=== PATIENT | female | born 1930 | race Caucasian/White ===

== ENCOUNTER 2018-04-19 09:30 | Emergency (ER) | payer MEDICARE, OTHER ==
[~2018-04-19] VITALS: Ht 137.2 cm; Wt 72.7 kg
[2018-04-19] MEDS ORDERED: DILT30TA PO (09:39)
[2018-04-19] MEDS ORDERED: IRBE75TA5 PO (09:39)
[2018-04-19 09:55] LABS: BASO % 0.4 % (0.0-1.0); EOS % 0.4 % (0.0-3.0); HEMATOCRIT 43.3 % (36.0-47.0); HEMOGLOBIN 14.4 g/dl (12.0-15.5); LYMPH # 1.3 10^3/uL (1.5-4.5); MEAN CORPUSCULAR HEMOGLOBIN 28.9 pg (27.0-33.0); MEAN CORPUSCULAR HGB CONC 33.3 g/dl (32.0-36.5); MEAN CORPUSCULAR VOLUME 86.9 fl (80.0-96.0); MONO # 0.6 10^3/uL (0.0-0.8); MONO % 12.5 % (0.0-5.0); NEUTROPHILS # 2.8 10^3/uL (1.8-7.7); NEUTROPHILS % 58.5 % (36.0-66.0); PLATELET COUNT, AUTOMATED 244 10^3/uL (150-450); RED BLOOD COUNT 4.98 10^6/uL (4.00-5.40); WHITE BLOOD COUNT 4.7 10^3/uL (4.0-10.0)
[2018-04-19] MEDS ORDERED: NS 1,000 ML IV ONE ×2 (10:00→12:00)
[2018-04-19] MEDS ORDERED: ONDANSETRON 4MG/2ML VIAL (J2405) IV ONE (10:00)
[2018-04-19 10:30] LABS: BLOOD UREA NITROGEN 26 MG/DL (7-18); CALCIUM LEVEL 8.9 MG/DL (8.8-10.2); CARBON DIOXIDE LEVEL 22 MEQ/L (21-32); CHLORIDE LEVEL 104 MEQ/L (98-107); CREATININE FOR GFR 0.75 MG/DL (0.55-1.30); GLOMERULAR FILTRATION RATE > 60.0 (>32); GLUCOSE, FASTING 93 MG/DL (70-100); POTASSIUM SERUM 3.4 MEQ/L (3.5-5.1); SODIUM LEVEL 137 MEQ/L (136-145)
[2018-04-19 13:39] VITALS: BP 168/75
[2018-04-19] MEDS ORDERED: POTASSIUM CHLORIDE 10 MEQ SR TABLET PO ONE (14:30)
[2018-04-19] MEDS ORDERED: LOMO2.5T PO (14:34)
[2018-04-19] MEDS ORDERED: ONDA4TAB6 PO (14:34)
== END 2018-04-19 14:44 | disposition home or self-care (01) ==
LOC: M ED 09:30 → EDBD 09:30 → M ED 14:44
DX: A08.0 Rotaviral enteritis (principal); E86.0 Dehydration; I10 Essential (primary) hypertension; I47.9 Paroxysmal tachycardia, unspecified

== ENCOUNTER → 2019-02-10 | Outpatient (CLI) | payer MEDICARE ==
[~2019-02-10] MED LIST: DILT30TA PO; IRBE75TA5 PO; LOMO2.5T PO; ONDA4TAB6 PO
== END ==
LOC: M SMT 14:25
PROVIDERS: ATTEND Internal Medicine Cardiovascular Disease
DX: R07.9 Chest pain, unspecified (principal)

== ENCOUNTER → 2019-11-09 | Outpatient (REF) | payer MEDICARE ==
[~2019-11-09] MED LIST changes: +IRBE75TA4 PO; -IRBE75TA5 PO
== END ==
LOC: M LAB REF 16:16
PROVIDERS: ATTEND Dermatology
DX: C44.319 Basal cell carcinoma of skin of other parts of face (principal)
CPT/HCPCS: 11102; 88305; G0463

== ENCOUNTER → 2019-12-16 | Outpatient (REF) | payer MEDICARE | LOC: M LAB REF 14:51 | PROVIDERS: ATTEND Dermatology | DX: C44.310 Basal cell carcinoma of skin of unspecified parts of face (principal) ==

== ENCOUNTER 2021-07-08 09:13 | Inpatient (IN) | payer MEDICARE ==
[~2021-07-08] VITALS: Ht 144.8 cm; Wt 73.6 kg
[2021-07-08] MEDS ORDERED: ONDANSETRON 4MG/2ML VIAL IV ONE (10:00)
[2021-07-08 10:47] LABS: BASO # 0.1 10^3/uL (0.0-0.2); BASO % 0.4 % (0.0-1.0); EOS # 0.1 10^3/uL (0.0-0.5); EOS % 0.5 % (0.0-3.0); HEMATOCRIT 40.2 % (36.0-47.0); HEMOGLOBIN 13.1 g/dl (12.0-15.5); LYMPH # 2.3 10^3/uL (1.5-5.0); LYMPH % 19.9 % (24.0-44.0); MEAN CORPUSCULAR HEMOGLOBIN 29.6 pg (27.0-33.0); MEAN CORPUSCULAR HGB CONC 32.6 g/dl (32.0-36.5); MONO # 0.7 10^3/uL (0.0-0.8); MONO % 5.7 % (2.0-8.0); NEUTROPHILS # 8.2 10^3/uL (1.5-8.5); NEUTROPHILS % 72.8 % (36.0-66.0); PLATELET COUNT, AUTOMATED 286 10^3/uL (150-450); RED BLOOD COUNT 4.42 10^6/uL (4.00-5.40); WHITE BLOOD COUNT 11.3 10^3/uL (4.0-10.0)
[2021-07-08 11:13] LABS: CK-MB VALUE MASS 1.1 NG/ML (<3.6); MB/CK RELATIVE INDEX 1.9 (< OR =4)
[2021-07-08 11:50] LABS: BLOOD UREA NITROGEN 21 MG/DL (7-18); CALCIUM LEVEL 9.2 MG/DL (8.8-10.2); CARBON DIOXIDE LEVEL 28 MEQ/L (21-32); CHLORIDE LEVEL 105 MEQ/L (98-107); CREATININE FOR GFR 0.74 MG/DL (0.55-1.30); GLOMERULAR FILTRATION RATE > 60.0 (>32); GLUCOSE, FASTING 98 MG/DL (70-100); POTASSIUM SERUM 4.2 MEQ/L (3.5-5.1); SODIUM LEVEL 139 MEQ/L (136-145)
[2021-07-08] MEDS ORDERED: DILT1TAB12 PO (12:39)
[2021-07-08] MEDS ORDERED: IRBE300T12 PO (12:39)
[2021-07-08] MEDS ORDERED: HOME MED LIST COMPLETE! XX SCH (12:55)
[2021-07-08 13:10] LABS: RSV AMPLIFICATION NEGATIVE (NEGATIVE)
[2021-07-08] MEDS ORDERED: ACETAMINOPHEN TAB 650MG DOSE (2X325MG) PO PRN (14:05)
[2021-07-08] MEDS: IRBESARTAN 150MG TAB PO SCH (14:55)
[2021-07-08 16:50] VITALS: BP 152/79
[2021-07-08 21:18] VITALS: BP_SYST 103; BP_SYST 121; BP_SYST 126; BP_DIAS 68; BP_DIAS 71; BP_DIAS 75
[2021-07-08 21:19] VITALS: BP 126/71
[2021-07-08] MEDS: RAMELTEON 8 MG TAB (ROZEREM) PO PRN (22:53)
[2021-07-09 01:40] VITALS: BP_SYST 110; BP_SYST 86; BP_DIAS 55; BP_DIAS 61; BP_DIAS 62
[2021-07-09 05:00] LABS: BASO # 0.1 10^3/uL (0.0-0.2); BASO % 0.7 % (0.0-1.0); EOS # 0.1 10^3/uL (0.0-0.5); EOS % 1.3 % (0.0-3.0); LYMPH # 1.4 10^3/uL (1.5-5.0); LYMPH % 18.1 % (24.0-44.0); MEAN CORPUSCULAR HEMOGLOBIN 30.2 pg (27.0-33.0); MEAN CORPUSCULAR HGB CONC 33.3 g/dl (32.0-36.5); MEAN CORPUSCULAR VOLUME 90.7 fl (80.0-96.0); MONO # 0.5 10^3/uL (0.0-0.8); MONO % 6.6 % (2.0-8.0); NEUTROPHILS # 5.5 10^3/uL (1.5-8.5); PLATELET COUNT, AUTOMATED 249 10^3/uL (150-450); RED BLOOD COUNT 3.97 10^6/uL (4.00-5.40); WHITE BLOOD COUNT 7.5 10^3/uL (4.0-10.0)
[2021-07-09 05:21] LABS: BLOOD UREA NITROGEN 21 MG/DL (7-18); CALCIUM LEVEL 8.8 MG/DL (8.8-10.2); CARBON DIOXIDE LEVEL 27 MEQ/L (21-32); CHLORIDE LEVEL 108 MEQ/L (98-107); CREATININE FOR GFR 0.65 MG/DL (0.55-1.30); GLOMERULAR FILTRATION RATE > 60.0 (>32); GLUCOSE, FASTING 105 MG/DL (70-100); POTASSIUM SERUM 4.3 MEQ/L (3.5-5.1); SODIUM LEVEL 140 MEQ/L (136-145)
[2021-07-09 05:45] VITALS: BP_SYST 105; BP_SYST 107; BP_SYST 109; BP_DIAS 58; BP_DIAS 59; BP_DIAS 62
[2021-07-09] MEDS: IRBESARTAN 150MG TAB PO SCH (09:00)
[2021-07-09] MEDS ORDERED: FLUBLOK(EGG FREE)(QUAD)INFLUENZA VACC 0.5ML SYRINGE 18YRS & OLDER IM ONE (09:00)
[2021-07-09 09:40] VITALS: BP_SYST 108; BP_SYST 112; BP_SYST 113; BP_DIAS 58; BP_DIAS 60; BP_DIAS 63
[2021-07-09 11:30] VITALS: BP 128/73
[2021-07-09] MEDS ORDERED: ONDANSETRON 4MG/2ML VIAL IV ONE (12:15)
[2021-07-09 14:00] VITALS: BP 118/74
[2021-07-09 19:06] VITALS: BP 130/70
[2021-07-10] MEDS: ONDANSETRON 4MG/2ML VIAL IV PRN ×2 (03:21→09:21)
[2021-07-10 05:40] VITALS: BP 156/70
[2021-07-10 06:14] LABS: BASO % 0.5 % (0.0-1.0); EOS # 0.1 10^3/uL (0.0-0.5); EOS % 1.1 % (0.0-3.0); HEMATOCRIT 36.4 % (36.0-47.0); LYMPH # 1.4 10^3/uL (1.5-5.0); LYMPH % 18.2 % (24.0-44.0); MEAN CORPUSCULAR HEMOGLOBIN 29.5 pg (27.0-33.0); MEAN CORPUSCULAR VOLUME 89.4 fl (80.0-96.0); MONO # 0.6 10^3/uL (0.0-0.8); MONO % 7.5 % (2.0-8.0); NEUTROPHILS # 5.7 10^3/uL (1.5-8.5); NEUTROPHILS % 72.3 % (36.0-66.0); PLATELET COUNT, AUTOMATED 246 10^3/uL (150-450); RED BLOOD COUNT 4.07 10^6/uL (4.00-5.40); WHITE BLOOD COUNT 7.9 10^3/uL (4.0-10.0)
[2021-07-10 06:35] LABS: BLOOD UREA NITROGEN 28 MG/DL (7-18); CALCIUM LEVEL 8.9 MG/DL (8.8-10.2); CARBON DIOXIDE LEVEL 28 MEQ/L (21-32); CHLORIDE LEVEL 107 MEQ/L (98-107); CREATININE FOR GFR 0.67 MG/DL (0.55-1.30); GLOMERULAR FILTRATION RATE > 60.0 (>32); GLUCOSE, FASTING 104 MG/DL (70-100); POTASSIUM SERUM 3.8 MEQ/L (3.5-5.1); SODIUM LEVEL 138 MEQ/L (136-145)
[2021-07-10] MEDS: IRBESARTAN 150MG TAB PO SCH (09:21)
[2021-07-10] MEDS: MECLIZINE 25 MG TABLET PO SCH ×4 (09:45→19:42)
[2021-07-10] MEDS ORDERED: ALPRAZolam 0.25 MG TAB PO PRN (10:00)
[2021-07-10 14:00] VITALS: BP 102/50
[2021-07-10 19:50] VITALS: BP 117/58
[2021-07-11 06:00] VITALS: BP 124/61
[2021-07-11 07:00] LABS: BASO % 0.6 % (0.0-1.0); EOS # 0.3 10^3/uL (0.0-0.5); EOS % 3.7 % (0.0-3.0); HEMATOCRIT 35.6 % (36.0-47.0); HEMOGLOBIN 11.7 g/dl (12.0-15.5); LYMPH # 2.8 10^3/uL (1.5-5.0); LYMPH % 39.8 % (24.0-44.0); MEAN CORPUSCULAR HEMOGLOBIN 29.6 pg (27.0-33.0); MEAN CORPUSCULAR HGB CONC 32.9 g/dl (32.0-36.5); MEAN CORPUSCULAR VOLUME 90.1 fl (80.0-96.0); MONO # 0.6 10^3/uL (0.0-0.8); MONO % 8.6 % (2.0-8.0); NEUTROPHILS # 3.3 10^3/uL (1.5-8.5); NEUTROPHILS % 46.9 % (36.0-66.0); PLATELET COUNT, AUTOMATED 238 10^3/uL (150-450); RED BLOOD COUNT 3.95 10^6/uL (4.00-5.40)
[2021-07-11 07:02] LABS: BLOOD UREA NITROGEN 26 MG/DL (7-18); CALCIUM LEVEL 8.8 MG/DL (8.8-10.2); CARBON DIOXIDE LEVEL 31 MEQ/L (21-32); CHLORIDE LEVEL 109 MEQ/L (98-107); CREATININE FOR GFR 0.85 MG/DL (0.55-1.30); GLOMERULAR FILTRATION RATE > 60.0 (>32); GLUCOSE, FASTING 82 MG/DL (70-100); POTASSIUM SERUM 4.5 MEQ/L (3.5-5.1); SODIUM LEVEL 141 MEQ/L (136-145)
[2021-07-11] MEDS: MECLIZINE 25 MG TABLET PO SCH ×4 (07:43→20:26)
[2021-07-11] MEDS: IRBESARTAN 150MG TAB PO SCH (09:00)
[2021-07-11 14:00] VITALS: BP 134/67
[2021-07-11 18:00] VITALS: BP 116/74
[2021-07-11] MEDS: RAMELTEON 8 MG TAB (ROZEREM) PO PRN (20:26)
[2021-07-12 06:00] VITALS: BP 114/68
[2021-07-12 06:46] LABS: BASO % 0.5 % (0.0-1.0); EOS # 0.2 10^3/uL (0.0-0.5); EOS % 3.1 % (0.0-3.0); HEMATOCRIT 37.1 % (36.0-47.0); HEMOGLOBIN 11.9 g/dl (12.0-15.5); LYMPH # 2.4 10^3/uL (1.5-5.0); LYMPH % 31.9 % (24.0-44.0); MEAN CORPUSCULAR HEMOGLOBIN 29.5 pg (27.0-33.0); MEAN CORPUSCULAR HGB CONC 32.1 g/dl (32.0-36.5); MEAN CORPUSCULAR VOLUME 92.1 fl (80.0-96.0); MONO # 0.7 10^3/uL (0.0-0.8); MONO % 9.3 % (2.0-8.0); NEUTROPHILS # 4.1 10^3/uL (1.5-8.5); NEUTROPHILS % 54.8 % (36.0-66.0); PLATELET COUNT, AUTOMATED 235 10^3/uL (150-450); RED BLOOD COUNT 4.03 10^6/uL (4.00-5.40); WHITE BLOOD COUNT 7.5 10^3/uL (4.0-10.0)
[2021-07-12 07:11] LABS: BLOOD UREA NITROGEN 31 MG/DL (7-18); CALCIUM LEVEL 8.6 MG/DL (8.8-10.2); CARBON DIOXIDE LEVEL 30 MEQ/L (21-32); CHLORIDE LEVEL 110 MEQ/L (98-107); CREATININE FOR GFR 0.77 MG/DL (0.55-1.30); GLOMERULAR FILTRATION RATE > 60.0 (>32); GLUCOSE, FASTING 87 MG/DL (70-100); POTASSIUM SERUM 3.8 MEQ/L (3.5-5.1); SODIUM LEVEL 142 MEQ/L (136-145)
[2021-07-12] MEDS ORDERED: MECL-86 PO ×2 (07:59→08:19)
[2021-07-12 08:53] VITALS: BP 114/68
[2021-07-12] MEDS: IRBESARTAN 150MG TAB PO SCH (08:53)
[2021-07-12] MEDS: MECLIZINE 25 MG TABLET PO SCH (08:57)
== END 2021-07-12 11:06 | disposition home health service (06) | DRG 103 ==
LOC: M ED 09:13 → EDBD 09:13 → M ED INP 13:41 → ENRESERV 14:35 → M MSPAV 16:46
PROVIDERS: ADMIT General Practice; ATTEND Internal Medicine
DX: F07.81 Postconcussional syndrome (principal); I47.1 Supraventricular tachycardia; I10 Essential (primary) hypertension; F41.9 Anxiety disorder, unspecified; W18.09XA Striking against other object with subsequent fall, initial encounter; Y92.009 Unspecified place in unspecified non-institutional (private) residence as the place of occurrence of the external cause; R29.6 Repeated falls; Z85.828 Personal history of other malignant neoplasm of skin; S00.93XA Contusion of unspecified part of head, initial encounter; S80.11XA Contusion of right lower leg, initial encounter

== ENCOUNTER 2022-03-14 20:02 | Observation (INO) | payer MEDICARE ==
[~2022-03-14] VITALS: Ht 144.8 cm; Wt 68.2 kg
[~2022-03-14 20:02] MED LIST changes: +DILT1TAB12 PO; +IRBE300T12 PO; +MECL-86 PO
[2022-03-14] MEDS ORDERED: ONDANSETRON 4MG 2ML VIAL IV ONE (22:00)
[2022-03-14] MEDS: MORPHINE 2 MG/ML 1ML VIAL IV PRN (22:31)
[2022-03-14 22:44] LABS: BASO % 0.3 % (0.0-1.0); EOS % 0.1 % (0.0-3.0); HEMATOCRIT 41.3 % (36.0-47.0); HEMOGLOBIN 13.3 g/dl (12.0-15.5); LYMPH # 1.7 10^3/uL (1.5-5.0); LYMPH % 14.3 % (24.0-44.0); MEAN CORPUSCULAR HEMOGLOBIN 28.8 pg (27.0-33.0); MEAN CORPUSCULAR HGB CONC 32.2 g/dl (32.0-36.5); MEAN CORPUSCULAR VOLUME 89.4 fl (80.0-96.0); MONO # 0.7 10^3/uL (0.0-0.8); MONO % 5.6 % (2.0-8.0); NEUTROPHILS # 9.5 10^3/uL (1.5-8.5); NEUTROPHILS % 79.4 % (36.0-66.0); PLATELET COUNT, AUTOMATED 294 10^3/uL (150-450); RED BLOOD COUNT 4.62 10^6/uL (4.00-5.40); WHITE BLOOD COUNT 11.9 10^3/uL (4.0-10.0)
[2022-03-14 22:54] LABS: INR 0.92; PROTHROMBIN TIME 12.6 SECONDS (12.5-14.5)
[2022-03-14 22:55] LABS: PARTIAL THROMBOPLASTIN TIME 27.5 SECONDS (24.8-34.2)
[2022-03-14 22:56] LABS: LIPASE 27 U/L (12-53)
[2022-03-14 22:57] LABS: BILIRUBIN,DIRECT 0.2 MG/DL (<0.4); CK-MB VALUE MASS 1.3 NG/ML (<3.6)
[2022-03-14 22:58] LABS: ALBUMIN 3.7 G/DL (3.2-5.2); ALKALINE PHOSPHATASE 107 U/L (46-116); ALT/SGPT 13 U/L (7.0-40); AST/SGOT 16 U/L (<34); BILIRUBIN,TOTAL 0.8 MG/DL (0.3-1.2); BLOOD UREA NITROGEN 19 MG/DL (9-23); CALCIUM LEVEL 9.4 MG/DL (8.3-10.6); CARBON DIOXIDE LEVEL 22 MMOL/L (20-31); CHLORIDE LEVEL 105 MMOL/L (98-107); GLOMERULAR FILTRATION RATE > 60.0 (>32); GLUCOSE, FASTING 110 MG/DL (74-106); POTASSIUM SERUM 3.8 MMOL/L (3.5-5.1); SODIUM LEVEL 140 MMOL/L (136-145); TOTAL PROTEIN 6.3 G/DL (5.7-8.2)
[2022-03-14 22:59] LABS: CPK CREATINE PHOSPHOKINASE 125 U/L (34-145); MB/CK RELATIVE INDEX 1.04 (< OR =4)
[2022-03-15] MEDS: MORPHINE 2 MG/ML 1ML VIAL IV PRN (00:53)
[2022-03-15 02:52] LABS: RSV AMPLIFICATION NEGATIVE (NEGATIVE)
[2022-03-15] MEDS ORDERED: NS 1,000 ML IV ONE (03:10)
[2022-03-15] MEDS ORDERED: methylPREDNISolone 40MG 1ML VIAL IV ONE (03:10)
[2022-03-15] MEDS ORDERED: PERCOCET 5MG/325MG TAB PO PRN (03:15)
[2022-03-15] MEDS ORDERED: ONDANSETRON 4MG TAB PO PRN (03:15)
[2022-03-15] MEDS ORDERED: ACETAMINOPHEN TAB 650MG DOSE (2X325MG) PO PRN (03:15)
[2022-03-15] MEDS ORDERED: PANTOPRAZOLE 40MG VIAL IV ONE (03:15)
[2022-03-15] MEDS ORDERED: MECL-86 PO (03:33)
[2022-03-15] MEDS ORDERED: FURO20TA2 PO (03:33)
[2022-03-15] MEDS ORDERED: ASPI-161 PO (03:33)
[2022-03-15] MEDS ORDERED: DILT60TA PO (03:33)
[2022-03-15] MEDS ORDERED: ACET-1349 PO (03:33)
[2022-03-15] MEDS ORDERED: HOME MED LIST COMPLETE! XX SCH (03:35)
[2022-03-15] MEDS ORDERED: HYDROMORPHONE HCL 0.5 MG/ 0.5 ML SYRINGE (J1170 PER 1) IV PRN (03:45)
[2022-03-15 05:43] LABS: HEMATOCRIT 39.4 % (36.0-47.0)
[2022-03-15 06:05] LABS: CALCIUM LEVEL 9.1 MG/DL (8.3-10.6); CREATININE FOR GFR 0.95 MG/DL (0.55-1.30)
[2022-03-15] MEDS ORDERED: SUCRALFATE SUSP 1GM/10ML UD PO ONE (07:40)
[2022-03-15] MEDS ORDERED: DOCUSATE SODIUM 100MG CAPSULE PO SCH (09:00)
[2022-03-15] MEDS ORDERED: LIDOCAINE 5% (LIDODERM) PATCH TOP SCH (09:00)
[2022-03-15] MEDS ORDERED: cloNIDine 0.2 MG TAB PO ONE ×2 (11:35→11:40)
[2022-03-15] MEDS ORDERED: FUROSEMIDE 20 MG TAB PO SCH (11:40)
[2022-03-15] MEDS ORDERED: SUCRALFATE SUSP 1GM/10ML UD PO SCH (12:00)
[2022-03-15] MEDS ORDERED: PANT40TA29 PO (14:32)
[2022-03-15] MEDS ORDERED: PERCOCET PO (14:32)
[2022-03-15] MEDS ORDERED: SUCR1SS PO (14:33)
[2022-03-15] MEDS ORDERED: LIDO5OIN19 TOP (14:34)
[2022-03-15 14:39] VITALS: BP 126/88
[2022-03-15] MEDS ORDERED: PANTOPRAZOLE 40MG TAB (PROTONIX) PO SCH (21:00)
== END 2022-03-15 15:17 | disposition home or self-care (01) ==
LOC: M ED 20:02 → EDBD 20:02 → M ED INP 20:03
PROVIDERS: ADMIT Internal Medicine; ATTEND Internal Medicine
DX: R42 Dizziness and giddiness (principal); M25.461 Effusion, right knee; W19.XXXA Unspecified fall, initial encounter; Y92.009 Unspecified place in unspecified non-institutional (private) residence as the place of occurrence of the external cause; K92.1 Melena; M10.9 Gout, unspecified; T39.395A Adverse effect of other nonsteroidal anti-inflammatory drugs [NSAID], initial encounter; I10 Essential (primary) hypertension; Z79.82 Long term (current) use of aspirin; Z79.899 Other long term (current) drug therapy; Z88.8 Allergy status to other drugs, medicaments and biological substances
CPT/HCPCS: 36415; 73564; 80048; 80076; 82550; 82553; 83690; 83735; 84484; 85014; 85018; 85025; 85610; 85730; 87631; 93005; 93041; 96374; 96375; 96376; 97116; 97162; 97165; 97530; 99285; C9113; G0378; J2270; J2405; J2920